=== PATIENT | male | born 1990 | race Two or more races ===

== ENCOUNTER 2021-07-28 01:27 | Emergency (ER) | payer SELFPAY ==
[2021-07-28 04:08] LABS: BASOPHIL 0.3 % (0-2); EOSINOPHIL 1.4 % (0-5); HCT 51.2 % (42.0-52.0); HGB 16.7 g/dl (13.2-18.0); LYMPHOCYTE 9.3 % (15-48); MCH 29.9 pg (25.0-31.0); MCHC 32.6 g/dL (32.0-36.0); MCV 91.6 fL (78.0-100.0); MONOCYTE 6.8 % (0-12); MPV 11.3 fL (6.0-9.5); NEUTROPHIL 81.8 % (41-80); NRBC 0; PLT 197 K/uL (150-400); RBC 5.59 M/uL (4.70-6.00); RDW 12.4 % (11.5-14.0); WBC 17.4 K/uL (4.0-10.5)
[2021-07-28 04:23] LABS: ALBUMIN 3.8 g/dL (3.4-5.0); BILIRUBIN - TOTAL 0.4 mg/dL (0.2-1.0); CREATININE 1.07 mg/dL (0.67-1.17); GLOBULIN (CALCULATION) 3.9 g/dL; POTASSIUM 3.9 mmol/L (3.5-5.1); TOTAL PROTEIN 7.7 g/dL (6.4-8.2)
[2021-07-28 06:28] LABS: BILIRUBIN NEGATIVE (NEGATIVE); BLOOD 1+ Ery/uL (NEGATIVE); CLARITY CLEAR (CLEAR); COLOR YELLOW (YELLOW); GLUCOSE (U) NORMAL (NORMAL); LEUKOCYTES NEGATIVE Leu/uL (NEGATIVE); NITRITE NEGATIVE (NEGATIVE); PROTEIN NEGATIVE (NEGATIVE); UROBILINOGEN 0.2 mg/dL (0.2-1.0)
[2021-07-28] MEDS ORDERED: ONDANSETRON ODT4 MG PO (07:13)
[2021-07-28] MEDS ORDERED: FLOMAX 0.4 MG0.4 MG PO (07:13)
[2021-07-28] MEDS ORDERED: OXY-IR 5MG5 MG PO (07:13)
== END 2021-07-28 08:00 | disposition home or self-care (01) ==
LOC: FER 01:27
PROVIDERS: Emergency Medicine
DX: N13.2 Hydronephrosis with renal and ureteral calculous obstruction (principal); Z88.2 Allergy status to sulfonamides; Z20.822 Contact with and (suspected) exposure to COVID-19
CPT/HCPCS: 36415; 80053; 81001; 83690; 85025; J1170; J1885; J2405; J7030; Q9967; U0002